=== PATIENT | male | born 1925 | race Caucasian/White ===

== ENCOUNTER 2016-06-30 08:21 | Emergency (ER) | payer MEDICARE, BC ==
[~2016-06-30 08:21] MED LIST: COUMADIN2.5 MG PO; DEBROX OTIC15 ML OU; DESYREL-DPS50 MG PO; FLOMAX DPS0.4 MG PO; HEMORRHOIDAL P1 EAC1 TP; LIPITOR DPS10 MG PO; LISINOPRIL-HCT1 EAC1 PO; LOPRESSOR DPS12.5 MG PO; MAALOX DPS30 ML PO; MICRO-K DPS10 MEQ PO; MIRALAX DPS17 GM PO; NORCO 5-325 TA1 EACH PO; NORVASC5 MG PO; SURFAK DPS240 MG PO; TYLENOL DPS325 MG PO; VITAMIN D32000 UNIT PO
--- NOTE | 2016-07-02 13:10 | ER ---
ADMIT: 06/30/2016 RM/LOC: ER [facility] MR#: [id number] [address] [address] [place] [address] Emergency Room Report SEX: M AGE: 89 : 1925 DATE: 06/30/2016 An 89-year-old, dementia patient felt at the custodial, sent here for evaluation. He was uncertain whether he was having pain anywhere or not. He thought if he was, it maybe his right hip. X-rays were done of the hip and pelvis. They were negative. His INR was checked and it was 1.89. He was discharged back to the custodial. DIAGNOSIS: Hip pain, subtherapeutic INR. Fernando Phelan MD/ richardl JOB #: [id number] CC: Fernando Phelan MD, Attending Physician Go Trejo MD, Family Physician
[2016-08-10] MEDS ORDERED: COLACE-DPS100 MG PO (20:09)
[2016-08-10] MEDS ORDERED: ATIVAN-DPS0.5 MG PO (20:09)
[2016-08-10] MEDS ORDERED: COUMADIN2.5 MG PO (20:10)
[2016-08-10] MEDS ORDERED: LIPITOR DPS10 MG PO (20:11)
[2016-08-10] MEDS ORDERED: LEXAPRO DPS10 MG PO (20:11)
[2016-08-10] MEDS ORDERED: FLOMAX DPS0.4 MG PO (20:11)
[2016-08-10] MEDS ORDERED: DESYREL-DPS50 MG PO (20:11)
[2016-08-10] MEDS ORDERED: MICRO-K DPS10 MEQ PO (20:11)
[2016-08-10] MEDS ORDERED: LOPRESSOR DPS12.5 MG PO (20:11)
[2016-08-10] MEDS ORDERED: ZESTORETIC 20/11 TAB PO (20:12)
[2016-08-10] MEDS ORDERED: NORVASC5 MG PO (20:12)
[2016-08-10] MEDS ORDERED: VITAMIN D31000 UNIT PO (20:12)
[2016-08-10] MEDS ORDERED: HYTONE 1% DPS30 GM TP (20:13)
[2016-08-10] MEDS ORDERED: TUCKS1 EACH TP (20:13)
[2016-08-10] MEDS ORDERED: BENADRYL-DPS25 MG PO (20:13)
[2016-08-10] MEDS ORDERED: ATIVAN-DPS1 MG PO (20:13)
[2016-08-10] MEDS ORDERED: MAALOX DPS30 ML PO (20:14)
[2016-08-10] MEDS ORDERED: MILK OF MAGNESI10 ML PO (20:14)
[2016-08-10] MEDS ORDERED: COMPAZINE DPS5 MG PO (20:14)
[2016-08-10] MEDS ORDERED: NORCO 5-325 TA1 EACH PO (20:14)
[2016-08-10] MEDS ORDERED: TYLENOL DP650 MG/20. PO (20:15)
[2016-08-10] MEDS ORDERED: SURFAK DPS240 MG PO (20:15)
[2016-08-10] MEDS ORDERED: TYLENOL DPS325 MG PO (20:15)
[2016-08-10] MEDS ORDERED: SENOKOT S1 TAB PO (20:15)
[2016-08-10] MEDS ORDERED: DULCOLAX-DPS10 MG PR (20:16)
== END 2016-06-30 10:00 | disposition home or self-care (01) ==
LOC: ER 08:21
DX: M25.551 Pain in right hip (principal); R79.1 Abnormal coagulation profile; Z79.01 Long term (current) use of anticoagulants; Z79.899 Other long term (current) drug therapy

== ENCOUNTER 2016-08-08 09:56 | Inpatient (IN) | payer MEDICARE, BC ==
[~2016-08-08] VITALS: Ht 185.4 cm; Wt 87.1 kg
--- NOTE | ~2016-08-08 | OR ---
ADMIT: 08/08/2016 RM/LOC: 511 [facility] MR#: [id number] [facility]#: [id number] [address] [address] [place] [address] Operative/Delivery Room Report SEX: M AGE: 89 : 1925 SURGERY DATE: 08/08/2016 SURGEON: Christopher Romero MD PREOPERATIVE DIAGNOSIS: Right elbow olecranon fracture. POSTOPERATIVE DIAGNOSIS: Right elbow olecranon fracture. PROCEDURE: Open reduction and internal fixation, right olecranon fracture using K-wire and tension band technique. GROUND TRANSPORTATION OPERATOR: KASEY Boone. ANESTHESIA: Patient did have a block, also had general anesthetic. ESTIMATED BLOOD LOSS: 20 mL. TOTAL TOURNIQUET TIME: 55 minutes. COMPLICATIONS: None. CONDITION: Fair to recovery room. INDICATIONS: The patient is an 89-year-old male, fell this morning injuring his right elbow. He was found to have an olecranon fracture. We discussed the injury with the patient as well as his power of attorney law clerk. They elected to proceed with operative fixation of this. The procedure as well as risks and benefits were discussed with him at length, questions were answered, and they agreed to proceed. DESCRIPTION OF PROCEDURE: After informed consent was obtained the patient did have supraclavicular block. Still having a little bit of pain with this, so I after going to the operating room, given a general anesthetic. After adequate general anesthesia, tourniquet was placed on right upper arm and the right upper extremity was prepped and draped in usual sterile fashion. I placed a pillow on the chest to bring his arm up over his chest during the surgery. Once this was completed, we marked out our incision. Exsanguinated the right upper extremity. We made an incision over the proximal ulna, extending proximally past the tip of the olecranon here. Carried this dissection down through the skin and subcutaneous tissues. The fracture was then identified. We did open this up, cleaned this out using a curette as well as irrigation. Once we had the fracture ends cleaned, we were able to reduce this nicely. There was a small medial comminuted fragment here as well. Once we had this reduced, we placed two K-wires, one 0.062 and one K-wire just slightly larger than this, across the fracture parallel to each other. These were noted to be in good position on the AP and lateral fluoroscopic views. Once this was completed, we then made a drill hole distally in the ulna on either side here to pass a tension band wire. The tension band wire was then passed through the hole, placed in a [id number]-[id number] configuration over the fracture. The wires ADMIT: 08/08/2016 RM/LOC: 511 [facility] MR#: [id number] [address] [place], [place] [address] [address] Operative/Delivery Room Report SEX: M AGE: 89 : 1925 were then twisted. We then used a large needle freight delivery driver to twist it and tension the tension band wire here. Once we had good tensioning of this, the elbow was taken through range of motion. There was excellent stability and good reduction of the fracture. Once this was completed, the K-wires were then bent, cut, and a small mallet was used to tap these into the proximal ulna engaging the opposite cortex here. We also cut the twist in the wire and bent this over into the soft tissues. Final AP and lateral fluoroscopic views were then obtained. The K-wires and tension band wire were in excellent position. The fracture was well reduced at this point. We were able to take the elbow through range of motion as well with no crepitus or grinding noted here. The wounds were then copiously irrigated. The subcutaneous tissues were closed using 2-0 Vicryl in a simple interrupted fashion. Skin closed using skin denzel. A sterile compressive dressing was then applied consisting of Xeroform, plain gauze, ABD, and Webril. We then placed a posterior splint overwrapped with an Gavin wrap. The patient was then transferred to the recovery room in fair condition. Christopher Romero MD/ amee JOB #: [id number] CC: Go Trejo, Attending Physician [facility] Physician, Family Physician
[2016-08-10] MEDS ORDERED: COLACE-DPS100 MG PO (20:09)
[2016-08-10] MEDS ORDERED: ATIVAN-DPS0.5 MG PO (20:09)
[2016-08-10] MEDS ORDERED: COUMADIN2.5 MG PO (20:10)
[2016-08-10] MEDS ORDERED: LIPITOR DPS10 MG PO (20:11)
[2016-08-10] MEDS ORDERED: LEXAPRO DPS10 MG PO (20:11)
[2016-08-10] MEDS ORDERED: FLOMAX DPS0.4 MG PO (20:11)
[2016-08-10] MEDS ORDERED: MICRO-K DPS10 MEQ PO (20:11)
[2016-08-10] MEDS ORDERED: LOPRESSOR DPS12.5 MG PO (20:11)
[2016-08-10] MEDS ORDERED: DESYREL-DPS50 MG PO (20:11)
[2016-08-10] MEDS ORDERED: VITAMIN D31000 UNIT PO (20:12)
[2016-08-10] MEDS ORDERED: ZESTORETIC 20/11 TAB PO (20:12)
[2016-08-10] MEDS ORDERED: NORVASC5 MG PO (20:12)
[2016-08-10] MEDS ORDERED: ATIVAN-DPS1 MG PO (20:13)
[2016-08-10] MEDS ORDERED: TUCKS1 EACH TP (20:13)
[2016-08-10] MEDS ORDERED: BENADRYL-DPS25 MG PO (20:13)
[2016-08-10] MEDS ORDERED: HYTONE 1% DPS30 GM TP (20:13)
[2016-08-10] MEDS ORDERED: MAALOX DPS30 ML PO (20:14)
[2016-08-10] MEDS ORDERED: COMPAZINE DPS5 MG PO (20:14)
[2016-08-10] MEDS ORDERED: NORCO 5-325 TA1 EACH PO (20:14)
[2016-08-10] MEDS ORDERED: MILK OF MAGNESI10 ML PO (20:14)
[2016-08-10] MEDS ORDERED: TYLENOL DPS325 MG PO (20:15)
[2016-08-10] MEDS ORDERED: SURFAK DPS240 MG PO (20:15)
[2016-08-10] MEDS ORDERED: TYLENOL DP650 MG/20. PO (20:15)
[2016-08-10] MEDS ORDERED: SENOKOT S1 TAB PO (20:15)
[2016-08-10] MEDS ORDERED: DULCOLAX-DPS10 MG PR (20:16)
--- NOTE | 2016-08-13 11:53 | CO ---
ADMIT: 08/08/2016 RM/LOC: 511 [facility] MR#: [id number] [address] [address] [place] [address] Consultation SEX: M AGE: 89 : 1925 Corrected: 08/09/2016 0625 djs DATE OF CONSULTATION: 08/08/2016 ATTENDING PHYSICIAN: Go Trejo CONSULTING PHYSICIAN: Christopher Romero MD CHIEF COMPLAINT: Right elbow pain. HISTORY OF PRESENT ILLNESS: The patient is an 89-year-old male, who lives at one of the nursing facilities. Fell injuring his right elbow today. He was brought to the emergency room. X-rays were obtained. He was found to have a moderately displaced right elbow olecranon fracture. Denies any other injuries during the fall. He is pleasantly demented. Dr. Telles had seen the patient in the emergency room and has cleared for any surgical treatment at this point. PHYSICAL EXAMINATION: Examination of the right elbow has a fair amount of swelling here. Tenderness to palpation over the elbow. He was able to flex extend this little bit here. I was able to move his digits well, and appears to be otherwise distally neurovascularly intact. IMAGING: X-ray show moderately displaced right elbow olecranon fracture. He does have some osteoporosis noted here as well. ASSESSMENT: Right elbow olecranon fracture. PLAN: Discussed with the patient treatment options. We also discussed with his power of traffic law attorney. At this point, we elected to proceed with open reduction and internal fixation of the elbow. We talked about doing a K-wire tension band technique for this. We discussed the procedure as well as risks and benefits with the patient's power of traffic law attorney Sky Herrera. Plan will be to take him to the operating room for open reduction and internal fixation of his right olecranon fracture, and at this point Dr. Telles has cleared the patient for surgery. Christopher Romero MD/ amee JOB #: [id number] CC: Go Trejo, Attending Physician [facility], Family Physician Corrected: 08/09/2016 0625 julio
--- NOTE | 2016-08-13 12:42 | HP ---
ADMIT: 08/08/2016 RM/LOC: 506 [facility] MR#: [id number] [address] [address] [place] [address] History and Physical SEX: M AGE: 89 : 1925 DATE OF SERVICE: CHIEF COMPLAINT: Fell this morning and has a right complex elbow fracture. HISTORY OF PRESENT ILLNESS: Mr. Leung is a very sweet, 89-year-old male, who was just hospitalized here from 06/11/2016 to 06/14/2016 with abdominal pain secondary to acute urinary retention. [facility] Apparently, this morning, he fell and had immediate right elbow pain and he was brought to the emergency room where workup showed a fracture of the right proximal ulna with mild distraction of the fracture fragments. Orthopedic is going to evaluate him and asked us to admit. No one is available at the time of my exam for any other history, so I will obtain it from his recent H and P. PAST MEDICAL HISTORY: Atrial fibrillation with a cardiac pacemaker. He is on chronic Coumadin therapy, but his INR now is only 1.2!. Besides his recent hospitalization, he was at [facility] in 2013 with syncope bradycardia and that is when he had his pacemaker placed and he was found to be in atrial fibrillation at that time. He also has a distant history of prostate cancer, history of hypertension, dementia, hyperlipidemia, and prior stroke. MEDICATIONS: According to his dismissal summary from to 06/14/2016: 1. Trazodone 75 mg at bedtime. 2. Flomax 0.4 mg daily. 3. Lipitor 10 mg at bedtime. 4. Lopressor 12.5 mg b.i.d. 5. MiraLax 17 g daily. 6. Norvasc 5 mg daily. 7. Vitamin D 2000 international units daily. 8. Zestoretic 23/04.5 one b.i.d. 9. Potassium 10 mEq b.i.d. 10.Lortab p.r.n. ALLERGIES: NO ALLERGIES ARE REPORTED. SOCIAL HISTORY: The old record reveals he was in the late 2012, and he lives alone. He has a lifeline. He has a POA who is a local divorce attorney, and again [facility]. He quit smoking a number of years ago. He admits to 1 to 2 drinks per day. REVIEW OF SYSTEMS: Otherwise, negative. Although, I wonder about its accuracy as he seems more confused now. PHYSICAL EXAMINATION: GENERAL: He is alert, seems oriented x2. No acute distress except for his elbow pain. HEENT: His pupils are equal, and reactive. I could not see his TMs very well. Throat is moist and not inflamed. NECK: Supple. No bruits. LUNGS: Clear to auscultation. ADMIT: 08/08/2016 RM/LOC: 506 [facility] MR#: [id number] [address] [place] [id number] [place] [address] History and Physical SEX: M AGE: 89 : 1925 CARDIAC: Shows a minimally irregular regular cardiac rhythm. A soft grade 2/6 systolic murmur at the lower left sternal border. ABDOMEN: Soft. No masses, tenderness, organomegaly. GENITORECTAL: Exam was not done. MUSCULOSKELETAL: He has obvious osteoarthritic changes of his hands, knees, and feet. His right arm is now in a splint. IMPRESSION: 1. Complex fracture, right elbow. 2. Recent hospitalization with abdominal pain and urinary retention. 3. Dementia. 4. History of prostate cancer. 5. Systemic hypertension. 6. Hyperlipidemia. 7. Previous history of stroke. PLAN: He has been admitted. We will get baseline lab, chest x-ray, EKG etc. since his INR is low, he is okay to go OR whenever Orthopedics can do that; although, apparently, he ate breakfast at 09:00 a.m. this morning-it is down noon. Therefore, they will probably hold off till tomorrow. I anticipate that he will do well with the surgery. Fuentes Telles MD/ amee JOB #: [id number] CC: Go Trejo, Attending Physician [facility] Physician, Family Physician
--- NOTE | 2016-08-15 13:52 | ER ---
ADMIT: 08/08/2016 RM/LOC: ER [facility] MR#: [id number] [address] [address] [place] [address] Emergency Room Report SEX: M AGE: 89 : 1925 DATE: 08/08/2016 CHIEF COMPLAINT: Fall. HISTORY OF PRESENT ILLNESS: This is an 89-year-old, who lives that [facility]. He lost his footing it sounds like and fell and hit his head. He also hurt his right elbow. He rates his pain at 2/10. Pain with any kind of range of motion with that elbow. PAST MEDICAL HISTORY: 1. Hypertension. 2. CVA. 3. Aortic aneurysm. 4. History of prostate cancer. 5. He has a pacemaker. MEDICATIONS: Please see nurse's note. He is on Coumadin and this is why the patient is a partial trauma. ALLERGIES: NO KNOWN ALLERGIES. SOCIAL HISTORY: Lives at [place]. Denies any tobacco, drug, or alcohol use. FAMILY HISTORY: Noncontributory. REVIEW OF SYSTEMS: CARDIOVASCULAR/RESPIRATORY: He denies any chest pain or shortness of breath. Worker in the room did say that he had a coughing episode after he fell. HEENT: He says his right eye just hurts mildly. MUSCULOSKELETAL: The only pain that he complains of is his right elbow. All systems are otherwise negative. PHYSICAL EXAMINATION: VITAL SIGNS: Blood pressure is 114/62, pulse 63, respirations 16, temperature is 96.1 tympanic, saturation on oxygen is 98% on room air. GENERAL APPEARANCE: The patient is in no acute distress and alert. HEENT: Eyes are PERRL, and EOMs intact. TMs; no erythema. No hemotympanum. He does have a superficial laceration to his right eyebrow that does not need any repair. No dental or oral injury. NECK: No midline tenderness. NEXUS criteria are negative. Full range of motion with neck. Does not complain of any pain with movement of the neck. HEART: Regular rate and rhythm. LUNGS: CTA bilaterally. No wheezes, rales, or rhonchi. ABDOMEN: Soft, nontender. No distention. SKIN: Normal color, warm, and dry. He does have a little bit ecchymosis to his right elbow. MUSCULOSKELETAL: He does have some swelling and ecchymosis to the right elbow with limited range of motion. He is not able to fully extend. He has pain with ADMIT: 08/08/2016 RM/LOC: ER [facility] MR#: [id number] [address] [place], [place] [id number] [facility] [place] [address] Emergency Room Report SEX: M AGE: 89 : 1925 supination and pronation. Pelvis is nontender. He walked into the ER. No injury to the lower extremities. NEURO/PSYCH: He is alert, but pleasantly confused, which is normal for him. No mental status changes per worker in the room. COURSE IN THE EMERGENCY ROOM: CT of the head, x-ray of the right elbow, and PT/INR was done. CT of the head is negative for any acute findings. Right elbow shows an olecranon fracture that is displaced. PT was 1.2. I did speak with Dr. Romero and Dr. Telles regarding this patient. Dr. Telles is admitting, Dr. Romero is consulting. CLINICAL IMPRESSION: Right olecranon fracture, closed and displaced. KASEY Manjarrez / Christopher Menendez MD / amee JOB #: [id number] CC: Christopher Menendez MD, Attending Physician [facility], Family Physician
--- NOTE | 2016-08-20 07:52 | DS ---
ADMIT: 08/08/2016 RM/LOC: 511 [facility] MR#: [id number] [address] [address] [place] [address] General Discharge Summary SEX: M AGE: 89 : 1925 ADMISSION DATE: 08/08/2016 DISCHARGE DATE: 08/09/2016 ADMITTING DIAGNOSIS: Displaced right olecranon closed fracture. DISMISSAL DIAGNOSIS: Displaced right olecranon closed fracture. PROCEDURES: Open reduction and internal fixation. COMPLICATING DIAGNOSES: Dementia, history of prostate cancer, hypertension, hyperlipidemia, and previous stroke. Go Trejo MD/ amee JOB #: [id number] CC: Go Trejo MD, Attending Physician [facility] Physician, Family Physician
== END 2016-08-09 11:55 | disposition home or self-care (01) | DRG 512 ==
LOC: ER 09:56 → 5MS 11:25
PROVIDERS: ADMIT Family Medicine
PROC: 0PSK04Z Reposition Right Ulna with Internal Fixation Device, Open Approach (ICD-10-PCS; principal; 2016-08-08)
DX: S52.021A Displaced fracture of olecranon process without intraarticular extension of right ulna, initial encounter for closed fracture (principal); F03.90 Unspecified dementia, unspecified severity, without behavioral disturbance, psychotic disturbance, mood disturbance, and anxiety; I48.91 Unspecified atrial fibrillation; E78.5 Hyperlipidemia, unspecified; I10 Essential (primary) hypertension; W19.XXXA Unspecified fall, initial encounter; Z85.46 Personal history of malignant neoplasm of prostate; Z95.0 Presence of cardiac pacemaker; Z79.01 Long term (current) use of anticoagulants; Z87.891 Personal history of nicotine dependence; Z86.73 Personal history of transient ischemic attack (TIA), and cerebral infarction without residual deficits